=== PATIENT | female | born 1970 | race Caucasian/White ===

== ENCOUNTER 2016-06-23 18:08 | Emergency (ER) | payer BC ==
[2016-06-23 18:37] VITALS: BP 138/94
--- NOTE | 2016-06-23 18:59 | UC ---
Cardiac HPI - HPI Summary HPI Summary: The patient comes in today for: 1. Chest pain: Onset: 3 hours. Palliative/provocative: Stopping the car made it worse as did leaning forward. Deep breath makes it worse. Exertion does not make it worse. Body position does not affect it. Quality: Pressure. Region/radiation: Retrosternal with radiation into the back when laying down. Severity: Deep breath: 7/10, without a deep breath: 4/10 Time: Constant. Associated symptoms: Previous heart problems: Fluid around the heart due to pulmonary embolism. She had the PE surgically removed ([facility]) and during the procedure, she had her heart "nicked" and this caused the fluid around the heart. Fever: None. Cough: None. Palpitations: None. CAD risk factors: Age: (-), HTN: (-), DM: (-), Previous disease: (0-CAD type) , Fm Hx premature heart disease (-), Smoker (-), cholesterol: (?) * - History of Current Complaint Stated Complaint: CHEST PRESSURE & TIGHTNESS Time Seen by Provider: 06/23/16 18:11 Hx Obtained From: Patient - Allergy/Home Medications Allergies/Adverse Reactions: Allergies Allergy/AdvReac Type Severity Reaction Status Date / Time No Known Allergies Allergy Verified 03/03/16 13:01 Home Medications: Home Medications QUEtiapine TAB* [Seroquel TAB*] 1 tab PO BID 06/23/16 [History] PMH/Surg Hx/FS Hx/Imm Hx Previously Healthy: No - Angioma of the brain. Endocrine History Of: Denies: Diabetes, Thyroid Disease, Hyperthyroidism, Hypothyroidism, Dyslipidemia Cardiovascular History Of: Reports: Cardiac Disorders - "Fluid around the heart " due to nicking of the heart during PE removal surg, Deep Vein Thrombosis - She had a PE secondary to angioma removed, subsequent infection, then PE. Denies: Hypertension, Pacemaker/ICD Respiratory History Of: Reports: Asthma - She is not on inhalers regularly., Pulmonary Embolism Denies: COPD, Bronchitis, Pneumonia GI/ History Of: Reports: Gastroesophageal Reflux Denies: Ulcer, Gastrointestinal Bleed, Gall Bladder Disease, Kidney Stones, Diverticulitis, Renal Disease, Urosepsis Neurological History Of: Reports: Migraine Denies: CVA, Dementia, Seizures Psychological History Of: Reports: Anxiety, Post Traumatic Stress Disorder Denies: Depression, Bipolar Disorder, Schizophrenia Cancer History Of: Denies: Lung Cancer, Colorectal Cancer, Breast Cancer, Prostate Cancer, Cervical Cancer Other History Of: Negative For: HIV, Hepatitis B, Hepatitis C, Anticoagulant Therapy - Surgical History Surgical History: Yes Surgery Procedure, Year, and Place: 2 C SECTIONS [id number] LEEP 1993 PARTIAL HYSTERECTOMY 2005. TONSILS-ADENOIDS 1999. 10/2015 - CRANIOTOMY REMOVAL OF MENINGIOMA THEN 11/29/15 INFECTION -I & D @ [facility]. -ATTEMPT - CLOT REMOVED LUNG - HAD A PERICARDIAL DRNG PLACED AND REMOVED . IVC FILTER PLACED IN OCTOBER 2015, THEN REMOVED 02/14/[address] GRAHAM @ [facility] – [place] - Family History Known Family History: Positive: Hypertension Negative: Cardiac Disease - Social History Occupation: Employed Full-time Alcohol Use: Rare Substance Use Type: None Smoking Status (MU): Never Smoked Tobacco Review of Systems Constitutional: Negative Skin: Negative Eyes: Negative ENT: Negative Respiratory: Negative Cardiovascular: Chest Pain Gastrointestinal: Negative Genitourinary: Negative Motor: Negative All Other Systems Reviewed And Are Negative: Yes Physical Exam Triage Information Reviewed: Yes Appearance: Well-Appearing, No Pain Distress, Well-Nourished Vital Signs Reviewed: Yes Eyes: Positive: Conjunctiva Clear. Negative: Discharge ENT: Positive: Hearing grossly normal. Negative: Pharyngeal erythema, Nasal congestion, Nasal drainage, TM bulging, TM dull, TM red, Tonsillar swelling, Tonsillar exudate Dental: Negative: Gross Decay/Caries @, Dental Fracture @ Neck: Positive: Supple, Nontender, No Lymphadenopathy. Negative: Nuchal Rigidity Respiratory: Positive: Lungs clear, No respiratory distress, No accessory muscle use. Negative: Chest non-tender - Slight tenderness to palpation of the sternum, but presents a different pain than what brings her in to be seen., Crackles, Wheezing Cardiovascular: Positive: RRR, No Murmur Abdomen Description: Positive: Nontender, No Organomegaly, Soft Bowel Sounds: Positive: Present Musculoskeletal: Positive: Strength Intact, ROM Intact, No Edema. Negative: Strength Limited @ Neurological: Positive: Alert, Muscle Tone Normal Psychological: Positive: Age Appropriate Behavior, Consolable Skin: Negative: rashes, breakdown Diagnostics - Laboratory Diagnostic Studies Completed/Ordered: EKG: Rate: 93. Rhythm: sinus. Ectopy: None. Acute changes: None. - Assessment/Plan Course Of Treatment: Patient was told that we could not rule out life threatening causes of chest pain here (CAD/ME, PE) and that the safest thing would be for her to go to the ER. She agreed to go by private car. - Differential Diagnoses - Chest Pain Differential Diagnosis/HQI/PQRI: Acute ME, ACS, Angina, Pulmonary Embolism - Clinical Impression Provider Diagnoses: Chest pain (pressure). - Physician Notifications Discussed Patient Care With: Cornelia Cerda Time Discussed With Above Provider: 19:23 Discharge - Discharge Plan Condition: Stable Disposition: AGAINST MEDICAL ADVICE Additional Instructions: Please go directly to the ER.
== END 2016-06-23 19:28 | disposition left against medical advice (07) ==
LOC: UCEAST 18:08
DX: R07.9 Chest pain, unspecified (principal)
CPT/HCPCS: 93005

== ENCOUNTER 2016-06-23 19:46 | Emergency (ER) | payer BC ==
[2016-06-23] MEDS ORDERED: Aspirin Low Dose CHEW TAB* 81 MG PO ONE (20:45)
[2016-06-23] MEDS ORDERED: Nitroglycerin TAB 0.4 MG* 0.4 MG TAB SL PRN (20:45)
[2016-06-23 21:07] LABS: Hematocrit 45 % (35-47); Hemoglobin 14.4 g/dl (12.0-16.0); Mean Corpuscular HGB Conc 32 g/dl (31-36); Mean Corpuscular Hemoglobin 30 pg (27-31); Mean Corpuscular Volume 93 fL (80-97); Mean Platelet Volume 9 um3 (7.4-10.4); Red Blood Count 4.84 10^6/ul (4.0-5.4); Red Cell Distribution Width 16 % (10.5-15); White Blood Count 11.8 10^3/ul (3.5-10.8)
--- NOTE | 2016-06-23 21:22 | ED ---
Beatriz Zhao Erika, scribed for Min Judge MD on 06/23/16 at 2106 . HPI Chest Pain - HPI Summary HPI Summary: Patient is a 46-year-old female presenting to the ED with a CC of midsternal chest pressure and squeezing starting around 15:00 today. Pt reports she was sitting at her desk when the pain began. Pain is aggravated by deep breathing. Pain has been worsening since then, and pt also developed a sharp pain in the left arm. Pt has not taken any medication for the pain. She reports she has never had similar symptoms before. Pt does note that she had a tumor removal from an artery in October 2015 at [place], then developed an infection and had further surgery. Hx DVT, PE. Pt states she was taken off blood thinners in March 2016. - History of Current Complaint Chief Complaint: EDChestPainROMI Time Seen by Provider: 06/23/16 20:39 Hx Obtained From: Patient, Family/Consumer Services Consultant - Onset/Duration: Started Hours Ago, Atraumatic, Still Present Timing: Constant Current Severity: Moderate Pain Intensity: 7 Pain Scale Used: 0-10 Numeric Chest Pain Location: Mid Sternal Chest Pain Radiates: Yes Chest Pain Radiates To:: Arm - left Character: Pressure/Squeezing Aggravating Factor(s): Deep Breaths Alleviating Factor(s): Nothing - Allergy/Home Medications Allergies/Adverse Reactions: Allergies Allergy/AdvReac Type Severity Reaction Status Date / Time No Known Allergies Allergy Verified 03/03/16 13:01 PMH/Surg Hx/FS Hx/Imm Hx Endocrine/Hematology History: Denies: Hx Anticoagulant Therapy, Hx Diabetes, Hx Thyroid Disease Cardiovascular History: Reports: Hx Deep Vein Thrombosis - She had a PE secondary to angioma removed, subsequent infection, then PE., Other Cardiovascular Problems/Disorders - pericardial effusion Denies: Hx Hypertension, Hx Pacemaker/ICD Respiratory History: Reports: Hx Asthma - She is not on inhalers regularly., Hx Pulmonary Embolism Denies: Hx Chronic Obstructive Pulmonary Disease (COPD), Hx Lung Cancer, Hx Pneumonia GI History: Denies: Hx Gall Bladder Disease, Hx Gastrointestinal Bleed, Hx Ulcer, Hx Urosepsis History: Denies: Hx Kidney Stones, Hx Renal Disease Sensory History: Denies: Hx Hearing Aid Neurological History: Reports: Hx Migraine Denies: Hx Dementia, Hx Seizures Psychiatric History: Reports: Hx Anxiety Denies: Hx Depression, Hx Panic Disorder, Hx Schizophrenia, Hx Bipolar Disorder, Hx Substance Abuse - Cancer History Cancer Type, Location and Year: Brain Tumor Hx Chemotherapy: No Hx Radiation Therapy: No - Surgical History Surgery Procedure, Year, and Place: 2 C SECTIONS [id number] LEEP 1993 PARTIAL HYSTERECTOMY 2005. TONSILS-ADENOIDS 1999. 10/2015 - CRANIOTOMY REMOVAL OF MENINGIOMA THEN 11/29/15 INFECTION -I & D @ [facility]. -ATTEMPT - CLOT REMOVED LUNG - HAD A PERICARDIAL DRNG PLACED AND REMOVED . IVC FILTER PLACED IN OCTOBER 2015, THEN REMOVED 02/14/[address] GRAHAM @ [facility] – [place] - Immunization History Date of Tetanus Vaccine: UNKNOWN Date of Influenza Vaccine: UNKNOWN Infectious Disease History: No Infectious Disease History: Denies: Hx Clostridium Difficile, Hx Hepatitis, Hx Human Immunodeficiency Virus (HIV), Hx of Known/Suspected MRSA, Hx Shingles, Hx Tuberculosis, Hx Known/ Suspected VRE, Hx Known/Suspected VRSA, History Other Infectious Disease, Traveled Outside the [place] in Last 30 Days - Family History Known Family History: Positive: Hypertension Negative: Cardiac Disease - Social History Lives: With Family Alcohol Use: Rare Hx Substance Use: No Substance Use Type: Reports: None Hx Tobacco Use: No Smoking Status (MU): Never Smoked Tobacco Review of Systems Positive: Chest Pain Musculoskeletal: Other - Pain in left arm All Other Systems Reviewed And Are Negative: Yes Physical Exam Triage Information Reviewed: Yes Vital Signs On Initial Exam: Initial Vitals Temp Pulse Resp BP Pulse Ox 97.3 F 101 20 128/82 100 06/23/16 19:50 06/23/16 19:50 06/23/16 19:50 06/23/16 19:50 06/23/16 19:50 Vital Signs Reviewed: Yes Appearance: Positive: Well-Appearing, No Pain Distress Skin: Positive: Warm Head/Face: Positive: Normal Head/Face Inspection Eyes: Positive: ABEL ENT: Positive: Hearing grossly normal Neck: Positive: Supple Respiratory/Lung Sounds: Positive: Clear to Auscultation, Breath Sounds Present Cardiovascular: Positive: RRR, Pulses are Symmetrical in both Upper and Lower Extremities Abdomen Description: Positive: Nontender, Soft Bowel Sounds: Positive: Present Musculoskeletal: Positive: Strength/ROM Intact. Negative: Gely Sign Left, Gely Sign Right Neurological: Positive: Normal, Sensory/Motor Intact, CN Intact II-III, Normal Gait Psychiatric: Positive: Normal Diagnostics - Vital Signs Vital Signs Temp Pulse Resp BP Pulse Ox 06/23/16 19:50 97.3 F 101 20 128/82 100 - Laboratory Lab Results: Lab Results 06/23/16 06/23/16 Range/Units 20:45 20:45 WBC 11.8 H (3.5-10.8) 10^3/ul RBC 4.84 (4.0-5.4) 10^6/ul Hgb 14.4 (12.0-16.0) g/dl Hct 45 (35-47) % MCV 93 (80-97) fL MCH 30 (27-31) pg MCHC 32 (31-36) g/dl RDW 16 H (10.5-15) % Plt Count 266 (150-450) 10^3/ul MPV 9 (7.4-10.4) um3 Neut % (Auto) 79.7 (38-83) % Lymph % (Auto) 13.9 L (25-47) % Hernando % (Auto) 5.3 (1-9) % Eos % (Auto) 0.8 (0-6) % Baso % (Auto) 0.3 (0-2) % Absolute Neuts (auto) 9.4 H (1.5-7.7) 10^3/ul Absolute Lymphs (auto) 1.6 (1.0-4.8) 10^3/ul Absolute Monos (auto) 0.6 (0-0.8) 10^3/ul Absolute Eos (auto) 0.1 (0-0.6) 10^3/ul Absolute Basos (auto) 0 (0-0.2) 10^3/ul Absolute Nucleated RBC 0 10^3/ul Nucleated RBC % 0 D-Dimer, Quantitative 258 H (Less Than 230) ng/mL Result Diagrams: 06/23/16 20:45 06/23/16 20:45 Lab Statement: Any lab studies that have been ordered have been reviewed, and results considered in the medical decision making process. - Radiology CXR Radiology Interpretation Completed By: Radiologist - IMPRESSION: No radiographic evidence of acute cardiopulmonary disease. - CT Chest/Thorax CTA CT Interpretation: Positive (See Comments) - No pulmonary embolism. No aortic dissection or aneurysm. No pneumonia or pleural effusions. Nonspecific bilateral ground glass densities. Small hiatal hernia. 3.2 cm probable hemangioma right hepatic lobe, not significantly changed since 04/28/07; comparison limited by differences in contrast technique. Borderline right paratracheal lymph nodes, slightly enlarged compared to prior exam CT Interpretation Completed By: Radiologist - IMAGING SHOE SINGER - EKG 20:05 Cardiac Rate: NL - 89 bpm EKG Rhythm: Sinus Rhythm Re-Evaluation - Re-Evaluation First Eval Re-Evaluation Time: 03:37 Change: Improved Comment: Lab and imaging results discussed. Pt feeling improved. Will be discharged Chest Pain Course/Dx - Course Assessment/Plan: A 46 y/o F presents to the ED with a CC of chest pain. Pt has a Hx DVT and PE. CXR shows no acute cardiopulmonary disease. Initial troponin is 0.02 and 3 hour troponin is 0.00. D Dimer is elevated at 258, and CTA Chest shows no evidence of PE. EKG shows NSR. Patient feels improved in the ED, and will be discharged home with follow up from her PCP. - Diagnoses Provider Diagnoses: Chest pain Discharge - Discharge Plan Condition: Stable Disposition: HOME Patient Education Materials: Chest Pain (ED) Referrals: Mariam Rosario MD [Primary Care Provider] - The documentation as recorded by the Beatriz tillman Erika accurately reflects the service I personally performed and the decisions made by me, Min Judge MD.
[2016-06-23 21:24] LABS: BUN/Creatinine Ratio 19.5 (8-20); Calcium 9.2 mg/dL (8.6-10.3); EGFR African American 104.7 (>60); EGFR Non-African American 81.4 (>60); Globulin 2.6 g/dL (2-4); Potassium 3.7 mmol/L (3.5-5.0); Total Bilirubin 0.6 mg/dL (0.2-1.0); Total Protein 6.6 g/dL (6.4-8.9)
[2016-06-23 21:26] LABS: Troponin I 0.02 ng/mL (<0.04)
--- NOTE | 2016-06-23 21:28 | RAD ---
INDICATION: Chest pain COMPARISON: Most recent comparison chest x-rays dated January 16, 2016 TECHNIQUE: PA and lateral views of the chest were obtained. FINDINGS: The heart and mediastinum are normal in size and contour. The lungs are grossly clear. There is no evidence of large pleural effusion. Visualized bones are normal for the patient's age. There is no radiographic evidence of free air beneath the diaphragm IMPRESSION: No radiographic evidence of acute cardiopulmonary disease.
[2016-06-24] MEDS ORDERED: Iohexol 350* (CONTRAST) 500 ML MDV IV ONE (02:02)
[2016-06-24 05:03] VITALS: BP 132/94
--- NOTE | 2016-06-24 08:32 | RAD ---
INDICATION: Chest pain and elevated d-dimer COMPARISON: Noncontrast CT of the chest dated April 28, 2007 TECHNIQUE: Axial source images were acquired following the administration of 84 mL Omnipaque [address] angiographic technique. Coronal and sagittal reconstructed images were constructed and reviewed. FINDINGS: There there are no filling defects in the pulmonary arteries to indicate acute pulmonary embolic disease. There are no focal infiltrates or effusions. There are no pulmonary parenchymal masses. The heart is normal in size. There is no evidence of pericardial effusion. There is no evidence of aortic aneurysm or dissection. There is a right of midline paratracheal lymph node measuring 9 mm in short axis diameter slightly increased from 7 mm on the previous CT examination. More inferiorly there is a second lymph node (image 49) measuring 7 mm in short access diameter, previously 5 mm. The visualized osseous structures appear normal. The right lobe of the liver there is a 2.9 cm low-density lesion exhibiting slight peripheral enhancement not significantly changed when compared to the 2007 CT examination. A benign hemangioma is favored. IMPRESSION: 1. No CT evidence of pulmonary embolism. 2. Top normal paratracheal mediastinal lymph nodes slightly larger than the April 28, 2007 CT examination of uncertain clinical significance. 3. 3 cm lesion in the right lobe of the liver is most consistent with a hemangioma. If clinically warranted this can be confirmed with nonemergent ultrasound of the liver.
== END 2016-06-24 04:35 | disposition home or self-care (01) ==
LOC: ED 19:46
DX: R07.9 Chest pain, unspecified (principal); M79.602 Pain in left arm
CPT/HCPCS: 36415; 71020; 71275; 80053; 83605; 83735; 84484; 84702; 85025; 85379; 93005; 99283; A9270-GY; Q9967

== ENCOUNTER 2016-10-09 15:01 | Emergency (ER) | payer BC ==
[2016-10-09 17:19] LABS: Hematocrit 46 % (35-47); Hemoglobin 15.2 g/dl (12.0-16.0); Mean Corpuscular HGB Conc 33 g/dl (31-36); Mean Corpuscular Hemoglobin 31 pg (27-31); Mean Corpuscular Volume 94 fL (80-97); Mean Platelet Volume 9 um3 (7.4-10.4); Red Blood Count 4.89 10^6/ul (4.0-5.4); Red Cell Distribution Width 14 % (10.5-15)
[2016-10-09 17:27] LABS: Urine Bacteria 1+ (Absent); Urine Bilirubin Negative (Negative); Urine Glucose Negative (Negative); Urine Nitrite Negative (Negative)
[2016-10-09 17:31] LABS: ALT 25 U/L (7-52); AST 21 U/L (13-39); Albumin 4.1 g/dL (3.2-5.2); Alkaline Phosphatase 70 U/L (34-104); Anion Gap 6 mmol/L (2-11); BUN/Creatinine Ratio 14.6 (8-20); Blood Urea Nitrogen 12 mg/dL (6-24); C Reactive Protein 8.61 mg/L (< 5.00); CO2 Carbon Dioxide 26 mmol/L (22-32); Calcium 9.1 mg/dL (8.6-10.3); Chloride 104 mmol/L (101-111); EGFR African American 97.4 (>60); EGFR Non-African American 75.7 (>60); Globulin 2.7 g/dL (2-4); Glucose 93 mg/dL (70-100); Potassium 3.9 mmol/L (3.5-5.0); Sodium 136 mmol/L (133-145); Total Protein 6.8 g/dL (6.4-8.9)
[2016-10-09] MEDS ORDERED: Butalb/Acetamin/Caff TAB* 1 TAB PO ONE (19:56)
--- NOTE | 2016-10-09 20:01 | RAD ---
INDICATION: Headaches. History of meningioma resection. COMPARISON: MRI brain July 13, 2016 TECHNIQUE: Noncontrast axial source images were acquired from the skull base to the vertex. FINDINGS: Ventricles/sulci: The ventricles and cisterns are unchanged in size and configuration for age. Brain parenchyma: There is no new focal parenchymal finding, evidence of new intracranial mass, or intracranial mass effect. There is encephalomalacia in the left posterior parietal region at the site of meningioma resection. Intracranial hemorrhage:None. Extra-axial spaces: The posterior falx likely related to residual meningioma. This better evaluated on MR imaging.. Calvarium: Stable post surgical change. Scalp: Surgical changes left posterior parietal region. Paranasal sinuses/mastoid: The paranasal sinuses and mastoid air cells are clear. Other: None. IMPRESSION: Surgical changes left posterior parietal region. No acute findings.
[2016-10-09 20:37] VITALS: BP 122/86
--- NOTE | 2016-10-09 21:18 | ED ---
Anjel Zhao Adam, scribed for Zan Amezquita on 10/09/16 at 1916 . Headache - HPI Summary HPI Summary: Pt is a 46 year old female presenting with a headache for the past 2 days. The GOYAL is still present now but not as severe as it was this morning; it is currently a 2/10 in severity. The pain is located around her sinuses and radiates to the back of her head. She also c/o nausea and stiffness in the back of her neck. She denies fever, CP, SOB, and weakness. Pt went to her PCP Dr. Rosario today who advised her to have testing done because of her hx of meningioma. The meningioma was mostly removed at [facility] nearly a year ago (pt states that a section was left in place because of its proximity to a nerve). She had an MRI done in June 2016. PMHx of PE. Pt is not on blood-thinners. She denies alcohol and tobacco use. FMHx of prostate cancer (grandfather). - History Of Current Complaint Chief Complaint: EDHeadache Stated Complaint: HEADACHE X2DAYS,NAUSEA-SENT BY DR Edmondson Time Seen by Provider: 10/09/16 19:09 Hx Obtained From: Patient Onset/Duration: Gradual Onset, Started days ago, Still Present Initially Headache Was: Moderate Currently Pain Is: Mild Timing: Constant Character: Typical Headache Location of Headache: Other: - Sinuses Radiates to: Back of head Aggravating Factor: Nothing Allevating Factors: Nothing Associated Signs And Symptoms: Nausea, Neck Stiffness - Allergies/Home Medications Allergies/Adverse Reactions: Allergies Allergy/AdvReac Type Severity Reaction Status Date / Time No Known Allergies Allergy Verified 07/08/16 12:03 PMH/Surg Hx/FS Hx/Imm Hx Endocrine/Hematology History: Denies: Hx Anticoagulant Therapy, Hx Diabetes, Hx Thyroid Disease Cardiovascular History: Reports: Hx Deep Vein Thrombosis - She had a PE secondary to angioma removed, subsequent infection, then PE., Other Cardiovascular Problems/Disorders - pericardial effusion Denies: Hx Hypertension, Hx Pacemaker/ICD Respiratory History: Reports: Hx Asthma - She is not on inhalers regularly., Hx Pulmonary Embolism Denies: Hx Chronic Obstructive Pulmonary Disease (COPD), Hx Lung Cancer, Hx Pneumonia GI History: Denies: Hx Gall Bladder Disease, Hx Gastrointestinal Bleed, Hx Ulcer, Hx Urosepsis History: Denies: Hx Dialysis, Hx Kidney Stones, Hx Renal Disease Sensory History: Denies: Hx Hearing Aid Neurological History: Reports: Hx Migraine Denies: Hx Dementia, Hx Seizures Psychiatric History: Reports: Hx Anxiety Denies: Hx Depression, Hx Panic Disorder, Hx Schizophrenia, Hx Bipolar Disorder, Hx Substance Abuse - Cancer History Cancer Type, Location and Year: MENINGIOMA Hx Chemotherapy: No Hx Radiation Therapy: No - Surgical History Surgery Procedure, Year, and Place: 2 C SECTIONS [id number] LEEP 1994 PARTIAL HYSTERECTOMY 2005. TONSILS-ADENOIDS 1999. 10/2015 - CRANIOTOMY REMOVAL OF MENINGIOMA THEN 11/29/15 INFECTION -I & D @ [facility]. -ATTEMPT - CLOT REMOVED LUNG - HAD A PERICARDIAL DRNG PLACED AND REMOVED . IVC FILTER PLACED IN OCTOBER 2015, THEN REMOVED 02/14/[address] GRAHAM @ [facility] [place] - Immunization History Date of Tetanus Vaccine: UNKNOWN Date of Influenza Vaccine: UNKNOWN Infectious Disease History: Denies: Hx Clostridium Difficile, Hx Hepatitis, Hx Human Immunodeficiency Virus (HIV), Hx of Known/Suspected MRSA, Hx Shingles, Hx Tuberculosis, Hx Known/ Suspected VRE, Hx Known/Suspected VRSA, History Other Infectious Disease, Traveled Outside the [place] in Last 30 Days - Family History Known Family History: Positive: Hypertension, Other - Prostate cancer ( grandfather) Negative: Cardiac Disease - Social History Occupation: Employed Full-time Lives: With Family - Alcohol Use: Rare Hx Substance Use: No Substance Use Type: Reports: None Hx Tobacco Use: No Smoking Status (MU): Never Smoked Tobacco Review of Systems Negative: Fever Negative: Chest Pain Negative: Shortness Of Breath Positive: Nausea Positive: Other - Neck stiffness Positive: Headache. Negative: Weakness All Other Systems Reviewed And Are Negative: Yes Physical Exam Triage Information Reviewed: Yes Vital Signs On Initial Exam: Initial Vitals Temp Pulse Resp BP Pulse Ox 98.3 F 77 18 137/75 100 10/09/16 15:26 10/09/16 15:26 10/09/16 15:26 10/09/16 15:10/09/16 15:26 Vital Signs Reviewed: Yes Appearance: Positive: Well-Appearing, No Pain Distress Skin: Positive: Warm, Skin Color Reflects Adequate Perfusion, Dry Head/Face: Positive: Normal Head/Face Inspection Eyes: Positive: EOMI, ABEL ENT: Positive: Normal ENT inspection Neck: Positive: Supple, Nontender Respiratory/Lung Sounds: Positive: Clear to Auscultation, Breath Sounds Present Cardiovascular: Positive: RRR, Pulses are Symmetrical in both Upper and Lower Extremities Abdomen Description: Positive: Nontender, Soft Bowel Sounds: Positive: Present Musculoskeletal: Positive: Normal, Strength/ROM Intact Neurological: Positive: Normal - Munith Coma Scale Coma Scale Total: 15 Diagnostics - Vital Signs Vital Signs Temp Pulse Resp BP Pulse Ox 10/09/16 18:06 132/107 10/09/16 18:02 80 98 10/09/16 17:56 131/103 10/09/16 16:33 98.1 F 82 17 134/95 100 10/09/16 15:26 98.3 F 77 18 137/75 100 - Laboratory Lab Results: Lab Results 10/09/16 10/09/16 10/09/16 Range/Units 17:00 17:00 17:00 WBC 9.0 (3.5-10.8) 10^3/ul RBC 4.89 (4.0-5.4) 10^6/ul Hgb 15.2 (12.0-16.0) g/dl Hct 46 (35-47) % MCV 94 (80-97) fL MCH 31 (27-31) pg MCHC 33 (31-36) g/dl RDW 14 (10.5-15) % Plt Count 265 (150-450) 10^3/ul MPV 9 (7.4-10.4) um3 Neut % (Auto) 69.1 (38-83) % Lymph % (Auto) 20.0 L (25-47) % [place] % (Auto) 7.9 (1-9) % Eos % (Auto) 2.1 (0-6) % Baso % (Auto) 0.9 (0-2) % Absolute Neuts (auto) 6.2 (1.5-7.7) 10^3/ul Absolute Lymphs (auto) 1.8 (1.0-4.8) 10^3/ul Absolute Monos (auto) 0.7 (0-0.8) 10^3/ul Absolute Eos (auto) 0.2 (0-0.6) 10^3/ul Absolute Basos (auto) 0.1 (0-0.2) 10^3/ul Absolute Nucleated RBC 0 10^3/ul Nucleated RBC % 0 Sodium 136 (133-145) mmol/L Potassium 3.9 (3.5-5.0) mmol/L Chloride 104 (101-111) mmol/L Carbon Dioxide 26 (22-32) mmol/L Anion Gap 6 (2-11) mmol/L BUN 12 (6-24) mg/dL Creatinine 0.82 (0.51-0.95) mg/dL Est GFR ( Amer) 97.4 (>60) Est GFR (Non-Af Amer) 75.7 (>60) BUN/Creatinine Ratio 14.6 (8-20) Glucose 93 (70-100) mg/dL Lactic Acid 1.5 (0.5-2.0) mmol/L Calcium 9.1 (8.6-10.3) mg/dL Total Bilirubin 0.60 (0.2-1.0) mg/dL AST 21 (13-39) U/L ALT 25 (7-52) U/L Alkaline Phosphatase 70 (34-104) U/L Troponin I 0.00 (<0.04) ng/mL C-Reactive Protein 8.61 H (< 5.00) mg/L Total Protein 6.8 (6.4-8.9) g/dL Albumin 4.1 (3.2-5.2) g/dL Globulin 2.7 (2-4) g/dL Albumin/Globulin Ratio 1.5 (1-3) Urine Color Urine Appearance Urine pH (5-9) Ur Specific [place] (1.010-1.030) Urine Protein (Negative) Urine Ketones (Negative) Urine Blood (Negative) Urine Nitrate (Negative) Urine Bilirubin (Negative) Urine Urobilinogen (Negative) Ur Leukocyte Esterase (Negative) Urine WBC (Auto) (Absent) Urine RBC (Auto) (Absent) Ur Squamous Epith Cells (Absent) Urine Bacteria (Absent) Urine Glucose (Negative) 10/09/16 Range/Units 17:10 WBC (3.5-10.8) 10^3/ul RBC (4.0-5.4) 10^6/ul Hgb (12.0-16.0) g/dl Hct (35-47) % MCV (80-97) fL MCH (27-31) pg MCHC (31-36) g/dl RDW (10.5-15) % Plt Count (150-450) 10^3/ul MPV (7.4-10.4) um3 Neut % (Auto) (38-83) % Lymph % (Auto) (25-47) % [place] % (Auto) (1-9) % Eos % (Auto) (0-6) % Baso % (Auto) (0-2) % Absolute Neuts (auto) (1.5-7.7) 10^3/ul Absolute Lymphs (auto) (1.0-4.8) 10^3/ul Absolute Monos (auto) (0-0.8) 10^3/ul Absolute Eos (auto) (0-0.6) 10^3/ul Absolute Basos (auto) (0-0.2) 10^3/ul Absolute Nucleated RBC 10^3/ul Nucleated RBC % Sodium (133-145) mmol/L Potassium (3.5-5.0) mmol/L Chloride (101-111) mmol/L Carbon Dioxide (22-32) mmol/L Anion Gap (2-11) mmol/L BUN (6-24) mg/dL Creatinine (0.51-0.95) mg/dL Est GFR ( Amer) (>60) Est GFR (Non-Af Amer) (>60) BUN/Creatinine Ratio (8-20) Glucose (70-100) mg/dL Lactic Acid (0.5-2.0) mmol/L Calcium (8.6-10.3) mg/dL Total Bilirubin (0.2-1.0) mg/dL AST (13-39) U/L ALT (7-52) U/L Alkaline Phosphatase (34-104) U/L Troponin I (<0.04) ng/mL C-Reactive Protein (< 5.00) mg/L Total Protein (6.4-8.9) g/dL Albumin (3.2-5.2) g/dL Globulin (2-4) g/dL Albumin/Globulin Ratio (1-3) Urine Color Yellow Urine Appearance Clear Urine pH 6.0 (5-9) Ur Specific [place] 1.010 (1.010-1.030) Urine Protein Negative (Negative) Urine Ketones Negative (Negative) Urine Blood 2+ H (Negative) Urine Nitrate Negative (Negative) Urine Bilirubin Negative (Negative) Urine Urobilinogen Negative (Negative) Ur Leukocyte Esterase Negative (Negative) Urine WBC (Auto) Absent (Absent) Urine RBC (Auto) 3+(>10/hpf) H (Absent) Ur Squamous Epith Cells Present H (Absent) Urine Bacteria 1+ H (Absent) Urine Glucose Negative (Negative) Result Diagrams: 10/09/16 17:00 10/09/16 17:00 Lab Statement: Any lab studies that have been ordered have been reviewed, and results considered in the medical decision making process. - CT BRAIN CT Interpretation Completed By: Radiologist - IMPRESSION: Surgical changes left posterior parietal region. No acute findings. - Additional Comments Diagnostic Additional Comments: Troponin I - 0.00 C-Reactive Protein - 8.61 Headache Course/Dx - Diagnoses Provider Diagnoses: Headache, History of meningioma - Physician Notifications Discussed Care Of Patient With: Dr. Yoder (Neurology) at 20:15. He said that there is not much to do for the patient at this point and that she can be discharged home with pain medication. The patient will follow up with Dr. Yoder at his office. Discharge - Discharge Plan Condition: Stable Disposition: HOME Prescriptions: Butalb/Acetamin/Caff TAB* [Fioricet TAB*] 1 tab PO Q6H PRN #20 tab PRN Reason: Headache Patient Education Materials: General Headache (ED), Meningioma (ED) Referrals: Mariam Rosario MD [Primary Care Provider] - Min Yoder MD [Medical Doctor] - Additional Instructions: Follow up with Dr. Yoder (Neurology). The documentation as recorded by the Anjel tillman Adam accurately reflects the service I personally performed and the decisions made by , Zan Amezquita.
== END 2016-10-09 20:37 | disposition home or self-care (01) ==
LOC: ED 15:01
DX: R51 Headache (principal); Z85.841 Personal history of malignant neoplasm of brain; R11.0 Nausea
CPT/HCPCS: 36415; 70450; 80053; 81003; 81015; 83605; 84484; 84702; 85025; 85610; 85652; 85730; 86140; 87040; 87086; 99283; A9270-GY